=== PATIENT | female | born 1965 | race Caucasian/White ===

== ENCOUNTER 2021-05-23 17:00 | Outpatient (CLI) | payer OTHER | END 2021-05-23 17:01 | disposition home or self-care (01) | LOC: SLEEPLAB 17:00 | PROVIDERS: ATTEND Student in an Organized Health Care Education/Training Program | DX: G47.33 Obstructive sleep apnea (adult) (pediatric) (principal); R53.83 Other fatigue; G47.00 Insomnia, unspecified; R09.89 Other specified symptoms and signs involving the circulatory and respiratory systems; R06.83 Snoring | CPT/HCPCS: 95806 ==

== ENCOUNTER 2021-06-20 07:25 | Outpatient (CLI) | payer OTHER | END 2021-06-20 07:26 | disposition home or self-care (01) | LOC: BICCT 07:25 | PROVIDERS: ATTEND Student in an Organized Health Care Education/Training Program | DX: J32.9 Chronic sinusitis, unspecified (principal) ==

== ENCOUNTER 2021-06-28 19:00 | Outpatient (CLI) | payer OTHER | END 2021-06-28 19:01 | disposition home or self-care (01) | LOC: SLEEPLAB 19:00 | PROVIDERS: ATTEND Student in an Organized Health Care Education/Training Program | DX: G47.33 Obstructive sleep apnea (adult) (pediatric) (principal); R53.83 Other fatigue; G47.00 Insomnia, unspecified; R09.89 Other specified symptoms and signs involving the circulatory and respiratory systems; R06.83 Snoring | CPT/HCPCS: 95811 ==

== ENCOUNTER 2022-04-14 10:56 | Emergency (ER) | payer BC ==
[2022-04-14] MEDS ORDERED: Ketorolac Tromethamine 30 MG/ML VIAL ONE (12:02)
[2022-04-14] MEDS ORDERED: Acetaminophen 500 MG TAB ONE (12:02)
[2022-04-14] MEDS ORDERED: Cyclobenzaprine 10 MG TAB ONE (12:02)
[2022-04-14] MEDS ORDERED: Dexamethasone 4 mg/ml Vial ONE (12:02)
== END 2022-04-14 13:55 | disposition home or self-care (01) ==
LOC: ERS 10:56
DX: M54.50 Low back pain, unspecified (principal)
CPT/HCPCS: 72131; 96372; J1100; J1885

== ENCOUNTER 2023-03-21 07:39 | Outpatient (CLI) | payer BC | END 2023-03-21 07:40 | disposition home or self-care (01) | LOC: SCSMRI 07:39 | PROVIDERS: ATTEND Neurological Surgery | DX: M47.26 Other spondylosis with radiculopathy, lumbar region (principal) | CPT/HCPCS: 72148 ==

== ENCOUNTER 2023-12-18 07:58 | Outpatient (CLI) | payer BC | END 2023-12-18 07:59 | disposition home or self-care (01) | LOC: BICMAMMO 07:58 | PROVIDERS: ATTEND Family Medicine | DX: Z12.31 Encounter for screening mammogram for malignant neoplasm of breast (principal); Z91.89 Other specified personal risk factors, not elsewhere classified | CPT/HCPCS: 77063; 77067 ==

== ENCOUNTER 2025-04-20 08:03 | Outpatient (CLI) | payer BC ==
[2025-04-20 10:23] LABS: #Basophils 0.03 10x3/uL (0.0-0.2); #Eosinophils 0.25 10x3/uL (0.0-0.7); #Monocytes 0.62 10x3/uL (0.11-0.59); #Neutrophils 3.12 10x3/uL (1.40-6.50); %Basophils 0.5 % (0.0-1.0); %Eosinophils 4.5 % (0.0-10.0); %Lymphocytes 27.3 % (21.0-51.0); %Monocytes 11.2 % (0.0-10.0); %Neutrophils 56.3 % (42.0-75.0); Hematocrit 47.3 % (36.0-47.0); Hemoglobin 14.5 g/dL (12.0-16.0); Mean Corpuscular Hemoglobin 28.8 pg (27.0-31.0); Mean Corpuscular Volume 93.8 fL (78.0-98.0); Platelet Count 314 10x3/uL (130-400); Red Blood Cell (RBC) Count 5.04 mill/uL (4.20-5.40); White Blood Cell (WBC) Count 5.54 10x3/uL (4.8-10.8)
[2025-04-20 10:41] LABS: Anion Gap 12 mmol/L (10-20); BUN (Urea Nitrogen) 8 mg/dL (9.8-20.1); Calc. Creatinine Clearance 0 mL/min (70-130); Calcium 8.6 mg/dL (7.8-10.44); Carbon Dioxide 28 mmol/L (22-29); Chloride 104 mmol/L (98-107); Glucose 104 mg/dL (70-105); Potassium 3.7 mmol/L (3.5-5.1); Sodium 140 mmol/L (136-145)
== END 2025-04-20 08:04 | disposition home or self-care (01) ==
LOC: LABBT 08:03
PROVIDERS: ATTEND Orthopaedic Surgery
DX: Z01.818 Encounter for other preprocedural examination (principal); M67.449 Ganglion, unspecified hand; M15.1 Heberden's nodes (with arthropathy)
CPT/HCPCS: 80048; 85025; 93005; 93010

== ENCOUNTER 2025-04-22 05:56 | Day surgery (SDC) | payer BC ==
[2025-04-20 08:40] VITALS: BMI 37.8
[2025-04-22] MEDS ORDERED: PROPOFOL 20 ML ONE (06:53)
[2025-04-22] MEDS ORDERED: fentaNYL PF 100 MCG/2 ML SYRINGE ONE (06:53)
[2025-04-22] MEDS ORDERED: Lidocaine 1% PF 5 ML VIAL ONE (06:57)
[2025-04-22] MEDS ORDERED: CEFAZOLIN 2 GM VIAL ONE (07:15)
[2025-04-22] MEDS ORDERED: PHENYLEPHRINE-NS 100 MCG/ML 10 ML SYRINGE ONE (07:45)
[2025-04-22] MEDS ORDERED: Ondansetron PF 4 MG/2 ML Vial ONE (07:57)
[2025-04-22] MEDS ORDERED: Bacitracin Zinc Ointment 30 gm TUBE ONE (08:14)
== END 2025-04-22 09:58 | disposition home or self-care (01) ==
LOC: SDC 05:56
PROVIDERS: ATTEND Orthopaedic Surgery
DX: M25.841 Other specified joint disorders, right hand (principal); M15.1 Heberden's nodes (with arthropathy)
CPT/HCPCS: 88304; A6223; J0665; J1100; J2250; J2405; J2704; J3010